=== PATIENT | male | born 1945 | race Caucasian/White ===

== ENCOUNTER 2017-05-05 11:00 | Outpatient (CLI) | payer MEDICARE, OTHER ==
[2017-05-05 12:33] LABS: Hemoglobin A1c 6.5 % (4.0-6.0)
[2017-05-05 12:57] LABS: Cardiac Risk 10.8 (Less than 4.5); Cholesterol 388 mg/dl (< 200 Desired); HDL Cholesterol 36 mg/dL (>60 Neg Risk); Triglycerides 829 mg/dL (Less than 150)
[2017-05-05 18:31] LABS: Creatinine, Urine 122.29 mg/dL (63-166); Microalbumin Urine 5.2 mg/dL (0.5-50.0); Microalbumin/Creat Ratio 42.5 mg/g (Less than 30)
[2017-05-05 19:23] LABS: Sex Hormone Binding Globulin 19.2 nmol/L (11-78); Testosterone, Free 51.6 pg/mL (47-244)
== END 2017-05-05 11:01 | disposition home or self-care (01) ==
LOC: NAVSJIPCSP 11:00
PROVIDERS: ATTEND Internal Medicine
DX: E78.5 Hyperlipidemia, unspecified (principal); E11.9 Type 2 diabetes mellitus without complications; N52.9 Male erectile dysfunction, unspecified; Z79.899 Other long term (current) drug therapy
CPT/HCPCS: 36415; 80061; 82043; 83036; 84270; 84403

== ENCOUNTER 2023-12-16 23:43 | Emergency (ER) | payer MEDICARE ==
[2023-12-17 00:03] LABS: Bilirubin Negative (Negative); Blood, Urine Trace (Negative); Clarity Clear (Clear); Glucose, Urine (Dipstick) Negative (Negative); Ketone, Urine Negative (Negative); Leukocyte Trace (Negative); Nitrite Positive (Negative); Protein, Urine (Dipstick) Negative (Neg-Trace); Specific Gravity, Urine 1.015 (1.005-1.030); Urobilinogen 0.2 mg/dL (Less than 2)
[2023-12-17 00:06] LABS: Bacteria/HPF 1+ HPF (None Seen); CAUTI Indications for Culture Pelvic or flank pain; RBC/HPF 0-3 HPF (0-3); Squamous Epithelial None Seen HPF (0-3); Urine Culture Reflex No No
== END 2023-12-17 00:42 | disposition home or self-care (01) ==
LOC: NAV ERS 23:43
DX: N39.0 Urinary tract infection, site not specified (principal); R33.9 Retention of urine, unspecified; R03.0 Elevated blood-pressure reading, without diagnosis of hypertension; E11.9 Type 2 diabetes mellitus without complications
CPT/HCPCS: 51702; 81001; 87086; 99283